=== PATIENT | male | born 1970 | race Caucasian/White ===

== ENCOUNTER 2016-12-25 00:06 | Emergency (ER) | payer OTHER ==
[2016-12-25 01:44] LABS: PLATELET COUNT 212 x10^3mcL (130-400); RED CELL DISTRIBUTION WIDTH 13.1 % (11.5-14.5)
[2016-12-25 01:48] LABS: BASOPHIL % 6.7 % (0-2)
[2016-12-25 01:49] LABS: CALCIUM 8.8 mg/dL (8.5-10.1); CHLORIDE SERUM 108 mmol/L (98-107); CREATININE SERUM 1.1 mg/dL (0.7-1.3); GFR1 > 60 mL/min; GLUCOSE SERUM 117 mg/dL (74-106); POTASSIUM SERUM 3.8 mmol/L (3.5-5.1); SODIUM SERUM 145 mmol/L (136-145)
[2016-12-25 01:54] LABS: ALBUMIN 3.8 g/dL (3.4-5.0); ALKALINE PHOSPHATASE 59 U/L (46-116); ALT/SGPT 53 U/L (16-63); AST/SGOT 22 U/L (15-37); BILIRUBIN TOTAL 0.25 mg/dL (0.20-1.00); TOTAL PROTEIN, SERUM 6.9 g/dL (6.4-8.2)
[2016-12-25 03:17] LABS: microscopic required? NO
[2016-12-25 04:15] LABS: UA SPECIFIC GRAVITY >=1.030 (1.005-1.035); urine erythrocyte NEGATIVE (NEGATIVE)
[2016-12-25 04:43] VITALS: BP 116/82
== END 2016-12-25 04:35 | disposition home or self-care (01) ==
LOC: ED 00:06
PROVIDERS: Emergency Medicine
DX: A64 Unspecified sexually transmitted disease (principal); Z88.8 Allergy status to other drugs, medicaments and biological substances
CPT/HCPCS: 36415; 87491; 87591; J0696

== ENCOUNTER 2019-12-08 17:19 | Emergency (ER) | payer OTHER ==
[~2019-12-08] VITALS: Ht 182.9 cm; Wt 88.5 kg
[2019-12-08 17:24] VITALS: Ht 182.9 cm; Wt 88.5 kg
[2019-12-08 17:56] LABS: BASOPHIL % 0.5 % (0-2); PLATELET COUNT 250 x10^3mcL (130-400); RED CELL DISTRIBUTION WIDTH 13.9 % (11.5-14.5)
[2019-12-08 18:04] LABS: CALCIUM 8.2 mg/dL (8.5-10.1); CARBON DIOXIDE 30.7 mmol/L (21-32); CHLORIDE SERUM 105 mmol/L (98-107); GFR1 > 60 mL/min; GLUCOSE SERUM 93 mg/dL (74-106); POTASSIUM SERUM 4.2 mmol/L (3.5-5.1); SODIUM SERUM 140 mmol/L (136-145)
[2019-12-08 18:08] LABS: ALBUMIN 3.4 g/dL (3.4-5.0); ALKALINE PHOSPHATASE 75 U/L (46-116); ALT/SGPT 28 U/L (16-63); AST/SGOT 14 U/L (15-37); BILIRUBIN TOTAL 0.3 mg/dL (0.20-1.00); TOTAL PROTEIN, SERUM 6.2 g/dL (6.4-8.2)
[2019-12-08 19:54] LABS: AMPHETAMINE QUAL UR NONE DETECTED (See below)
[2019-12-09 11:13] VITALS: BP 131/92
== END 2019-12-09 11:13 ==
LOC: ED 17:19
PROVIDERS: Emergency Medicine
DX: R45.851 Suicidal ideations (principal); Z20.828 Contact with and (suspected) exposure to other viral communicable diseases; Z59.0 Homelessness; Z88.8 Allergy status to other drugs, medicaments and biological substances
CPT/HCPCS: G0480; U0003-CS